=== PATIENT | female | born 1985 | race African-American/Black ===

== ENCOUNTER 2024-03-24 12:38 | Emergency (ER) | payer OTHER, SELFPAY ==
--- NOTE | ~2024-03-24 | XR_ITS ---
XR shoulder LT min 2V Ordering provider: Sheryl Valencia NP History: . pain generalized left shoulder, fall 1 week ago. . Comparison: None. FINDINGS: BONES: No acute fracture or dislocation. JOINT SPACES: A minimal subluxation in the acromioclavicular joint is not excluded. Otherwise, The ac romioclavicular joint is normal. The glenohumeral joint is normal. SOFT TISSUES: Normal. IMPRESSION: No acute osseous abnormality left shoulder. Possible minimal subluxation of the acromioclavicular joint. Reviewed, dictated and finalized at location A. CTOR OF PUBLICATIONS
--- NOTE | ~2024-03-24 | XR_ITS ---
XR hand RT min 3V Ordering provider: Sheryl Valencia NP History: . pain to thumb, index finger and little finger, fall 1 week . Comparison: None. FINDINGS: BONES: No acute fracture or dislocation. JOINT SPACES: Normal. SOFT TISSUES: Normal. IMPRESSION: No acute osseous abnormality right hand. Reviewed, dictated and finalized at location A. LE SOFTWARE ENGINEER
--- NOTE | ~2024-03-24 | XR_ITS ---
XR ankle LT min 3V Ordering provider: Sheryl Valencia NP History: . pain left ankle generalized. fell 1 week ago. . Comparison: None. FINDINGS: BONES: No acute fracture or dislocation. JOINT SPACES: The ankle mortise is normal. SOFT TISSUES: Normal. IMPRESSION: No acute osseous abnormality left ankle. Reviewed, dictated and finalized at location A. MARKETING DIRECTOR
[2024-03-24 12:49] VITALS: BP 107/62; PULSE 79; RESP 16; TEMP 37.1; O2SAT 100
--- NOTE | 2024-03-24 13:04 | ED_ITS ---
HPI - Fall General Chief Complaint: Fall Stated Complaint: R elbow/L shoulder/R hand pain from fall 1 day ago Time Seen by Provider: 03/24/24 13:04 Source: patient Mode of arrival: ambulatory Limitations: no limitations History of Present Illness HPI Narrative: 39-year-old female presents with complaint of pain to left shoulder, left knee, left ankle and right hand pain. Patient is ambulatory with steady gait. States that she fell yesterday on ice. Did not head head. Was able to get up on her own. Patient is requesting x-rays. All systems reviewed and negative except as noted above. Related Data Allergies Allergy/AdvReac Type Severity Reaction Status Date / Time No Known Allergies Allergy Verified 03/24/24 13:11 Review of Systems Review of Systems: CONSTITUTIONAL: Denies fever, chills, or sweats. EYES: Denies visual changes, redness, or discharge. ENT: Denies rhinorrhea, congestion, sore throat, or otalgia. CARDIOVASCULAR: Denies chest pain, palpitations, or edema. RESPIRATORY: Denies cough or dyspnea. GASTROINTESTINAL: Denies abdominal pain, nausea, vomiting, or diarrhea. GENITOURINARY: Denies dysuria or hematuria. SKIN: Denies rash or itching. MUSCULOSKELETAL: Denies back pain or myalgia. Reports pain to left shoulder, left knee, left ankle and right arm, index finger and little finger. NEUROLOGIC: Denies headache, numbness, or weakness. PSYCHIATRIC: Denies anxiety or depression. All other systems reviewed are negative, except as documented in HPI. PMFSH Comments Patient is aware of diagnosis, understands and agrees to treatment plan. Anticipatory guidance given. Patient agrees to follow-up as directed and is aware of reasons to seek care at the emergency department. Portions of this record may have been created with voice recognition software Exam Narrative: GENERAL: This is a well-nourished, well-developed patient, in no apparent distress. HEAD: normocephalic, atraumatic. EYES: PERRL. Sclera clear/white. Vision is grossly intact. EARS: External ears normal NOSE: External nose normal NECK: Neck supple, non-tender without lymphadenopathy, masses or thyromegaly. CARDIOVASCULAR: Regular rate and rhythm without murmurs, gallops, or rubs. RESPIRATORY: Clear to auscultation. Breath sounds equal bilaterally. No wheezes, rales, or rhonchi. SKIN: warm, Dry, intact with no suspicious lesions or rash, good texture and turgor. NEURO: awake, alert, and oriented to person, place and time. There were no obvious focal neurologic abnormalities. EXTREMITIES: Left knee is normal in appearance without contusion or swelling. Range of motion is normal. No tenderness on exam. Generalized tenderness to left shoulder, difficult to exam due to patient complaining of pain, pulling away and moving around. Mild swelling to lateral aspect of left ankle with tenderness on palpation. No deformity noted. Distal neurovascularly intact. Tenderness to right thumb, proximal aspect of, with mild swelling. No deformity. BACK: Nontender without deformity. No CVA tenderness. Course Course Level of Care: Express Care Visit Vital Signs Vital signs: Vital Signs Temperature 37.1 C 03/24/24 12:49 Pulse Rate 79 03/24/24 12:49 Respiratory Rate 16 03/24/24 12:49 Blood Pressure 107/62 03/24/24 12:49 Pulse Oximetry 100 03/24/24 12:49 Oxygen Delivery Room Air 03/24/24 12:49 Temperature 37.1 C 03/24/24 12:49 Pulse Rate 79 03/24/24 12:49 Respiratory Rate 16 03/24/24 12:49 Blood Pressure 107/62 03/24/24 12:49 Pulse Oximetry 100 03/24/24 12:49 Oxygen Delivery Room Air 03/24/24 12:49 Reviewed MDM - Fall MDM Narrative Medical decision making narrative: Discussed x-ray results with patient. X-rays were negative for fracture. Recommend patient take Tylenol or ibuprofen as needed for pain. Recommend follow up primary care physician if pain is not improving. Patient is well- appearing, nontoxic. Patient is aware of diagnosis, understands and agrees to treatment plan. Anticipatory guidance given. Patient agrees to follow-up as directed and is aware of reasons to seek care at the emergency department. Portions of this record may have been created with voice recognition software Imaging Data My impression: Agree with radiologist Radiologist's impression: XR shoulder LT min 2V Ordering provider: Sheryl Valencia NP History: . pain generalized left shoulder, fall 1 week ago. . Comparison: None. FINDINGS: BONES: No acute fracture or dislocation. JOINT SPACES: A minimal subluxation in the acromioclavicular joint is not excluded. Otherwise, The acromioclavicular joint is normal. The glenohumeral joint is normal. SOFT TISSUES: Normal. IMPRESSION: No acute osseous abnormality left shoulder. Possible minimal subluxation of the acromioclavicular joint. Discharge Plan Discharge Clinical Impression: Fall due to ice or snow, Left shoulder strain, Left ankle sprain Patient Disposition: Home, Self-Care Condition: Stable Instructions: Ankle Sprain (ED), Shoulder Pain (ED) Additional Instructions: the x-ray of your left shoulder, right hand and left ankle were negative for fracture. Take ibuprofen or Tylenol every 6-8 hours as needed for pain and fever. Elevate when at rest. Apply ice as needed for pain. Follow-up with your primary care physician if symptoms are not improving. Patient Language: Kinyarwanda Prescriptions: New ibuprofen 600 mg tablet 600 mg PO Q6H PRN (Reason: pain) Qty: 30 0RF Follow-up/Referrals: Cornelius,Sakshi Light MD [Primary Care Provider] - Time of Disposition: 14:34
== END 2024-03-24 14:40 | disposition home or self-care (01) ==
PROVIDERS: Emergency Provider Nurse Practitioner Family; PCP Emergency Medicine
DX: S46.912A Strain of unspecified muscle, fascia and tendon at shoulder and upper arm level, left arm, initial encounter (principal); S93.402A Sprain of unspecified ligament of left ankle, initial encounter; W00.0XXA Fall on same level due to ice and snow, initial encounter
CPT/HCPCS: 73030; 73130; 73610; 99214; G0463

== ENCOUNTER 2024-05-20 13:07 | Outpatient (CLI) | payer OTHER, SELFPAY ==
--- NOTE | ~2024-05-20 | US_ITS ---
EXAM: Focused ultrasound examination of the soft tissues of the posterior right elbow HISTORY: MASS OF ELBOW REGION , after a fall on 03/24/2024 TECHNIQUE: Sonographic evaluation of the soft tissues of the posterior right elbow were performed ass essing grayscale appearance and color Doppler flow. COMPARISON: None. FINDINGS: Sonographic evaluation of the soft tissues of the posterior right elbow demonstrates 2 well-circumscr ibed areas of decreased but mixed echogenicity. These measure 10.6 x 3.6 x 10.5 mm, and 8.6 x 4.2 x 7.8 mm. Sonographic evaluation of the remainder of the soft tissues of the posterior right elbow demonstrates benign fibrofatty and fibromuscular elements without a cystic or solid lesion of concern. IMPRESSION: Findings which likely represent resolving hematomas from the patient's episode of blunt trauma approx imately 90 days earlier for which follow-up to resolution is recommended. Repeat focused ultrasound in 30 days is suggested. Reviewed, dictated and finalized at location A. ISTICAL METHODS PROFESSOR IMPRESSION: Findings which likely represent resolving hematomas from the patient's episode of blunt trauma approximately 90 days earlier for which follow-up to resolution is recommended. Repeat focused ultrasound in 30 days is suggested.
--- OUTSIDE RECORDS SUMMARY | 2024-05-20 14:26 | XMS_ITS | Encounter Summary ---
Author Organization [facility] Healthcare Address [address] [place] [address] Care Team Providers Care Tare Weigher Name Role Phone Lorena Álvarez MD Primary Care Provider + No, Physician Primary Care Provider [phone] Lorena Álvarez MD Primary Care Provider + Sabine Teague MD Primary Care Provider [phone] No, Physician Primary Care Provider [phone] Encounter Details Date Type Department Care Team (Late st Contact Info) Description 1986 Orders Only [facility] Information Management [address] [place] [address] Scanning, Provider Social History Tobacco Use Types Packs/Day Years Used Date Smoking Tobacco: Never Assessed Comments Unknown Sex and Gender Information Value Date Recorded Sex Assigned at Not on file 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 Gender Identity Not on file Sexual Orientation Not on file documented as of this encounter Plan of Treatment Not on file documented as of this encounter Procedures Procedure Name Priority Date/Time Associated Diagnosis Comments SCAN - OTHER ORDERS 1986 documented in this encounter Results * SCAN - OTHER ORDERS (1986) us Provider Scanning Final Result documented in this encounter Visit Diagnoses Not on filedocumented in this encounter Care Teams Tare Weigher Relationship Specialty Start Date End Date Lorena Álvarez MD [address] [place], [place] [id number] PCP - General 07/10/16 01/13/17 No, Physician PCP - General 01/14/17 01/16/17 Lorena Álvarez MD [address] [place] [address] PCP - General 01/17/17 12/02/18 Sabine Teague MD [address] [facility] [place] [address] PCP - General Internal Medicine 12/03/18 09/27/21 No, Physician PCP - General 10/03/21 documented as of this encounter
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
--- OUTSIDE RECORDS SUMMARY | 2024-05-20 14:27 | XMS_ITS | Referral Summary ---
Author Organization [facility] Address [address] [place] [address] Care Team Providers Care Selector Packer Name Role Phone No, Physician Primary Care Provider [phone] Allergies Active Allergy Reactions Criticality Noted Date Comments Ondansetron Hives Medium 11/27/2018 Medications quetiapine fumarate (SEROQUEL ORAL) Take 1 tablet by mouth as needed Active desipramine (NORPRAMIN) 50 mg tabletIndicatio ns:pain Take 50 mg by mouth every morning Active shanda root (SHANDA, ZINGIBER OFFICINALIS,) 550 mg capsule Take 550 mg by mouth as needed Active acetaminophen (TYLENOL) 500 mg tablet Take 2 tablets (1,000 mg total) by mouth every 6 (six) hours as needed for pain 30 tablet 0 Active Additional Information Patient taking differently:1,000 mg oralAs needed, pain, Informant: Self, Reported on 09/04/2020 baclofen (LIORESAL) 10 mg tabletIndicatio ns:Muscle Spasticity of Spinal Origin Take 10 mg by mouth as needed Active cyclobenzaprine (FLEXERIL) 10 mg tabletIndicatio ns:Muscle Spasm Take 10 mg by mouth as needed Active traMADoL (ULTRAM) 50 mg tablet Take 50 mg by mouth as needed Active ibuprofen (ADVIL,MOTRIN) 800 mg tabletIndicatio ns:Pain Take 800 mg by mouth as needed Active cyclobenzaprine (FLEXERIL) 10 mg tabletIndicatio ns:Crushing injury of left arm, initial encounter Take 1 tablet (10 mg total) by mouth 3 (three) times a day as needed for muscle spasms 30 tablet 1 Active ibuprofen (ADVIL,MOTRIN) 600 mg tabletIndicatio ns:Crushing injury of left arm, initial encounter TAKE 1 TABLET(600 MG) BY MOUTH EVERY 6 HOURS NEEDED FOR PAIN 120 tablet 1 Active Active Problems Problem Noted Date Diagnosed Date 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 Syncope 12/03/2018 Generalized abdominal pain 12/03/2018 Adenomatous colon polyp 12/18/2017 Bloating 12/18/2017 Nausea & vomiting 05/05/2012 Resolved Problems Problem Noted Date Diagnosed Date Resolved Date Crushing injury of left arm, initial encounter 08/04/2020 05/02/2021 Heartburn 05/05/2012 05/02/2021 Immunizations Immunization Administration Dates Next Due DTaP 10/26/1992,01/20/1992,1986 Hep A, Adult 02/26/2019,02/20/2018 Hep A, Pediatric 11/10/2001 Hep B, Unspecified 11/10/2001,09/07/1999 Influenza, Split 03/07/2010 Influenza, Trivalent, IM (MDV) 11/28/2013 MMR 02/17/1992,01/20/1992 OPV 10/26/1992,01/20/1992,1986 Pneumococcal Polysaccharide PPV23 12/03/2018 Td, adsorbed 07/05/2002,09/07/1999 Social History Tobacco Use Types Packs/Day Years Used Date Smoking Tobacco: Every Day Cigarettes 0.8 19.2 Started: 2005 Smokeless Tobacco: Never Alcohol Use Standard Drinks/Week Comments Yes 1 (1 standard drink = 0.6 oz pur e alcohol) once per week AUDIT-C Answer Date Recorded Q1: How often do you have a drink containing alc ohol? Never 09/04/2020 Average Number of Drinks Not on file 021 Frequency of Binge Drinking Not on file 08/16 Personal Safety Answer Date Recorded Getting School Help Needed Not on file 03/18 Comments No Sex and Gender Information Value Date Recorded Sex Assigned at Not on file Legal Sex Female 4:45 PM [employer] Gender Identity Not on file Sexual Orientation Not on file Last Filed Vital Signs Vital Sign Reading Time Taken Comments Blood Pressure 109/72 09/28/2021 4:30 AM CDT Pulse 59 09/28/2021 4:30 AM CDT Temperature 37 C (98.6 F) 09/28/2021 12:10 AM CDT Respiratory Rate 16 09/28/2021 3:36 AM CDT Oxygen Saturation 100% 09/28/2021 4:30 AM CDT Inhaled Oxygen Concentration - - Weight 68 kg (150 lb) 09/28/2021 12:01 AM CDT Height 165.1 cm (5' 5 ) 09/28/2021 12:01 AM CDT Body Mass Index 24.96 09/28/2021 12:01 AM CDT Plan of Treatment Not on file Goals Goal Patient Goal Type Associated Problems Recent Progress Patient-Stated? Author Med Mgmt Goal - Patient will understand importance of following medication regimen and will take appropriate steps to maintain regimen ACO Care Management Jennifer Gannon Note: Problem: Medication management Interventions: - Assess barriers to medication adherence: Provide coordination of care, education and resources to address these barriers. Include SW in patient's plan of care for resources if needed. - Instruct patient to: Take each medication each day at the times indicated by using a system (list, pill box, etc.). Do not allow prescriptions to or bottles to become empty before requesting refills. Bring all medications to each office visit. Contact physician or CM if they feel they are having side effects from medications (rather than stopping them without telling anyone). Insurance [facility] Care Teams Selector Packer Relationship Specialty Start Date End Date No, Physician PCP - General 10/03/21
--- OUTSIDE RECORDS SUMMARY | 2024-05-20 14:27 | XMS_ITS | Clinical Summary ---
Author Organization [facility] Address [address] [place] [address] Care Team Providers Care Television Host Name Role Phone No, Physician Primary Care Provider [phone] Allergies Active Allergy Reactions Criticality Noted Date [...] Pneumococcal Polysaccharide PPV23 12/03/2018 Td, adsorbed 07/05/2002,09/07/1999 Surgical History Surgery Date Site/Laterality Comments SECTION 06/15/2008 - 07/14/2008 TUBAL LIGATION 03/17/2010 - 03/16/2011 COLONOSCOPY 2012, 2016 Medical History Medical History Date Comments Encounter for supervision of normal Supervision of normal pregna ncy - (Added by TW Conv) Smoker Boutonniere deformity Family History Medical History Relation Name Comments Cancer Father Diabetes Maternal Grandmother No Known Problems Mother Breast cancer Mother's Sister Asthma Son Relation Name Status Comments Father Maternal Grandmother Mother Mother's Sister Son Social History Tobacco Use Types Packs/Day Years [...] on file Legal Sex Female 4:45 PM [employer] Gender Identity Not on file Sexual Orientation Not on file Obstetrics History Last Filed Vital Signs Vital Sign Reading [...] 09/28/2021 12:01 AM CDT Plan of Treatment Health Maintenance Due Date Last Done Comments Cervical Cancer Screening 1986 Depression Screening 1986 Hepatitis C Screening 1986 Varicella Vaccines (1 of 2 - 13+ 2-dose series) 1999 DTaP/Tdap/Td Vaccine (4 - Tdap) 07/06/2002 07/05/2002, 09/07/1999, 10/26/1992, Additional history exists Regular Well Visit/Exam 18-64 01/24/2004 Pneumococcal vaccine <65 (2 of 2 - PCV) 12/04/2019 12/03/2018 Influenza Vaccine (#1) 2023 11/28/2013, 2009 Hepatitis B Screening Completed 11/10/2001, 000 HPV Vaccines Aged Out No longer eligi ble based on patient's age to complete this topic Goals Goal Patient Goal Type Associated Problems Recent Progress Patient-Stated? Author Med Mgmt Goal - Patient will understand importance of following medication regimen and will take appropriate steps to maintain regimen ACO Care Management No Jennifer Wood Note: Problem: Medication management Interventions: - Assess [...] than stopping them without telling anyone). Insurance Care Teams Television Host Relationship Specialty Start Date End Date No, Physician PCP - General 10/03/21
== END 2024-05-20 13:08 | disposition home or self-care (01) ==
PROVIDERS: PCP Emergency Medicine; Visit Provider Emergency Medicine
DX: R22.31 Localized swelling, mass and lump, right upper limb (principal)
CPT/HCPCS: 76882

== ENCOUNTER 2024-06-26 07:33 | Outpatient (CLI) | payer OTHER, SELFPAY ==
--- NOTE | ~2024-06-26 | US_ITS ---
Soft tissues right upper extremity ULTRASOUND (Doppler ultrasound interrogation techniques used as n eeded for this exam.) Ordering provider: Sakshi Shields, History: . ABNORMAL FINDINGS ON DIAGNOSTIC IMAGING . Comparison: May 20, 2024 FINDINGS/impression: 2 hypoechoic area seen posterior to the right elbow unchanged from previous examination and measures 1.1 x 0.4 x 1 cm and 1.1 x 0.4 x 1.1 cm. Reviewed, dictated and finalized at location A.
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
--- OUTSIDE RECORDS SUMMARY | 2024-06-26 07:37 | XMS_ITS | Encounter Summary ---
Author Organization [facility] Healthcare Address [address] [place] [address] Care Team Providers Care French Folding Machine Operator Name Role Phone Lorena Álvarez MD Primary Care Provider + No, Physician Primary Care Provider [phone] Lorena Álvarez MD Primary Care Provider + Sabine Teague MD Primary Care Provider [phone] No, Physician Primary Care Provider [phone] Encounter Details Date Type Department Care Team (Late st Contact Info) Description 1986 Orders Only [facility] Health Information Management [address] [place] [address] Scanning, Provider Social History Tobacco Use Types Packs/Day Years Used Date Smoking Tobacco: Never Assessed Comments Unknown Sex and Gender Information Value Date Recorded Sex Assigned at Not on file Legal Sex Female 4:[address] MAN Gender Identity Not on file Sexual Orientation [...] on filedocumented in this encounter Care Teams French Folding Machine Operator Relationship Specialty Start Date End Date Lorena Álvarez MD [address] [place], [place] [id number] PCP - General 07/10/16 01/13/17 No, Physician PCP - General 01/14/17 01/16/17 Lorena Álvarez MD [address] [place] [address] PCP - General 01/17/17 12/02/18 Sabine Teague MD [address] [facility] [place] [address] PCP - General Internal Medicine 12/03/18 09/27/21 No, Physician PCP - General 10/03/21 documented as of this encounter
--- OUTSIDE RECORDS SUMMARY | 2024-06-26 07:37 | XMS_ITS | Referral Summary ---
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 Insurance [place] [facility] Care Teams Vice Chair Relationship Specialty Start Date End Date No, Physician PCP - General 10/03/21
--- OUTSIDE RECORDS SUMMARY | 2024-06-26 07:37 | XMS_ITS | Clinical Summary ---
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 Insurance Care Teams Carton Counter Feeder Relationship Specialty Start Date End Date No, Physician PCP - General 10/03/21
== END 2024-06-26 07:34 | disposition home or self-care (01) ==
PROVIDERS: PCP Emergency Medicine; Visit Provider Emergency Medicine
DX: R93.89 Abnormal findings on diagnostic imaging of other specified body structures (principal)
CPT/HCPCS: 76882